=== PATIENT | female | born 1990 | race Two or more races ===

== ENCOUNTER 2025-06-22 10:14 | Emergency (ER) | payer MEDICAID ==
[~2025-06-22] VITALS: Ht 160 cm; Wt 90.0 kg
[2025-06-22 10:16] VITALS: TEMP 98
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
[2025-06-22] MEDS: ACETAMINOPHEN 500 MG TAB or CAP PO ONE (11:11)
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
[2025-06-22] MEDS ORDERED: IBUP-1456 PO (13:09)
[2025-06-22 13:23] VITALS: BP 146/90; PULSE 84; RESP 18; O2SAT 99
== END 2025-06-22 13:24 | disposition home or self-care (01) ==
LOC: ER 10:14
DX: S00.83XA Contusion of other part of head, initial encounter (principal); R51.9 Headache, unspecified; Y08.89XA Assault by other specified means, initial encounter; Y93.89 Activity, other specified; Y92.89 Other specified places as the place of occurrence of the external cause; Y99.8 Other external cause status
CPT/HCPCS: 70450; 81025

== ENCOUNTER 2025-10-20 16:34 | Emergency (ER) | payer MEDICAID ==
[~2025-10-20] VITALS: Ht 160 cm; Wt 81.2 kg
[~2025-10-20 16:34] MED LIST: IBUP-1456 PO
[2025-10-20 16:35] VITALS: BP 135/92; PULSE 93; RESP 16; TEMP 97.8; O2SAT 98
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
[2025-10-20] MEDS ORDERED: ZOFR4T PO (17:19)
[2025-10-20] MEDS: ONDANSETRON ODT 4 MG TAB PO ONE (17:24)
[2025-10-20] MEDS: ACETAMINOPHEN 325 MG TAB PO ONE (17:26)
== END 2025-10-20 17:31 | disposition home or self-care (01) ==
LOC: ER 16:34
DX: S01.03XA Puncture wound without foreign body of scalp, initial encounter (principal); W01.198A Fall on same level from slipping, tripping and stumbling with subsequent striking against other object, initial encounter; Y93.89 Activity, other specified; Y92.89 Other specified places as the place of occurrence of the external cause; Y99.8 Other external cause status
CPT/HCPCS: 99283; Q0162